=== PATIENT | female | born 1955 | race Caucasian/White ===

== ENCOUNTER → 2017-01-04 | Outpatient (CLI) | payer OTHER ==
[~2017-01-04] MED LIST: ASPIR 8181 MG PO; BETIMOL5 ML OP; CALCIUM + D3 E1 EACH PO; DICLOFENAC SODI75 MG PO; DILTIAZEM 24HR120 MG PO; FERROUS SULFAT325 M2 PO; FLEXERIL 10 MG10 MG PO; FLONASE 0.05% N16 GM; FOLIC ACID1 MG PO; KLONOPIN TAB 00.5 MG PO; LEVSIN TAB 00.125 MG SL; NEURONTIN 400400 MG PO; NORCO 5-325 TA1 EACH PO; OMEPRAZOLE20 MG PO; VASOTEC10 MG PO; VITAMIN C 500500 MG PO; VITAMIN D35000 UNI1 PO; XALATAN OP SOL2.5 ML OP; ZOCOR10 MG PO; ZYRTEC10 M3 PO
== END ==
LOC: MAMO 11-02 12:50
DX: Z12.31 Encounter for screening mammogram for malignant neoplasm of breast (principal); Z87.898 Personal history of other specified conditions
CPT/HCPCS: G0202

== ENCOUNTER → 2017-01-08 | Outpatient (CLI) | payer OTHER | LOC: EXRD 10:38 | DX: R05 Cough (principal); R91.8 Other nonspecific abnormal finding of lung field | CPT/HCPCS: 71020 ==

== ENCOUNTER → 2017-03-13 | Outpatient (CLI) | payer OTHER | LOC: US 14:16 | DX: R22.2 Localized swelling, mass and lump, trunk (principal); R91.8 Other nonspecific abnormal finding of lung field | CPT/HCPCS: 76604 ==

== ENCOUNTER → 2021-03-24 | Outpatient (CLI) | payer OTHER | LOC: RAD 15:28 | DX: R07.81 Pleurodynia (principal); W19.XXXA Unspecified fall, initial encounter | CPT/HCPCS: 71101 ==

== ENCOUNTER → 2021-05-17 | Outpatient (CLI) | payer OTHER | LOC: MAMO 11:01 | DX: Z12.31 Encounter for screening mammogram for malignant neoplasm of breast (principal) | CPT/HCPCS: 77063; 77067 ==

== ENCOUNTER → 2021-11-10 | Outpatient (CLI) | payer OTHER | LOC: HEART 5 08:38 | DX: R07.9 Chest pain, unspecified (principal) | CPT/HCPCS: 78452; A9502; J2785 ==

== ENCOUNTER → 2022-03-07 | Outpatient (CLI) | payer OTHER | LOC: EXRD 09:43 | DX: M54.2 Cervicalgia (principal); M47.812 Spondylosis without myelopathy or radiculopathy, cervical region; M47.816 Spondylosis without myelopathy or radiculopathy, lumbar region | CPT/HCPCS: 72040; 72100 ==